=== PATIENT | female | born 1970 | race Caucasian/White ===

== ENCOUNTER → 2017-03-30 | Day surgery (SDC) | payer OTHER ==
[~2017-03-30] VITALS: Ht 165.1 cm; Wt 86.2 kg
[~2017-03-30] MED LIST: DOXY-278 PO; GLYCOPYRROLATE INJ 0.2 MG/ML 2 ML VIAL As Ordered ONE; HYDROmorphone HCL 1 MG/ML SYRINGE (J1170) IV PRN; KETOROLAC 30 MG/ML VIAL (J1885) IV PRN; LIDOCAINE 1% MDV 20ML VIAL SQ ONE; LIDOCAINE 2% INJ 100 MG/5 ML SDV (FOR ANES.) As Ordered ONE; LIDOCAINE W/EPINEPHRINE 1% 20ML VIAL As Ordered ONE; LR 1,000 ML IV ONE; LR 1,000 ML IV SCH; MEPERIDINE INJ 25 MG/ML VIAL (J2175) IV PRN; METHYLENE BLUE 0.5% (5MG/ML) 10 ML AMP (PROVAYBLUE)(Q9968 PER 1MG) As Ordered ONE; METOCLOPRAMIDE INJ 10MG/2ML VIAL (J2765) As Ordered ONE; MIDAZOLAM INJ 2 MG/2 ML VIAL (J2250) As Ordered ONE; NEOSTIGMINE 1MG/ML 5 ML SYRINGE (J2710) As Ordered ONE; ONDANSETRON 4MG/2ML VIAL (J2405) As Ordered ONE; ONDANSETRON 4MG/2ML VIAL (J2405) IV PRN; OXYMETAZOLINE NASAL SPRAY (AFRIN) As Ordered ONE; PERCOCET 5MG/325MG TAB PO PRN; PERCOCET PO; PROPOFOL 200 MG/20 ML VIAL As Ordered ONE; ROCURONIUM BROMIDE 50 MG/5 ML VIAL As Ordered ONE; dexameTHASONE 4 MG/ML 1ML VIAL (J1100) As Ordered ONE; fentaNYL 100 MCG/2 ML INJECTION (J3010) IV PRN; fentaNYL 250 MCG/5 ML INJECTION (J3010) As Ordered ONE
[2017-03-30 13:55] VITALS: BP 152/86
--- NOTE | 2017-04-01 09:44 | RO ---
DATE OF PROCEDURE: 03/30/2017 PREPROCEDURE DIAGNOSES: Deviated septum, chronic rhinitis. POSTPROCEDURE DIAGNOSES: Deviated septum, chronic rhinitis. PROCEDURE: Septoplasty, partial reduction inferior turbinates. SURGEON: Dr. Santosh Oakes [employer] O[employer]: ANESTHESIA: General endotracheal. INDICATIONS: This is a 47-year-old with a long history of nasal obstruction, worse on the right side. DESCRIPTION OF PROCEDURE: Satisfactory general endotracheal anesthesia administered. Pharyngeal pack was placed. The nose was prepared for surgery by placing cotton-soaked pledgets with Afrin solution to nasal cavity bilaterally. 1% Xylocaine with 1:100,000 epinephrine was used to inject into the nasal septum and inferior turbinates. 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 This approach was taken to avoid loss of the normal dorsal and caudal struts. The septum was then mobilized so its edge could be visualized and then an envelope was created on the left side of the septum by elevating mucoperichondrium off the caudal septum. An envelope was then created on the right side of the septum with the caudal strut and dorsal strut well visualized at this point. First a central segment of cartilaginous septum was resected, care taken to preserve at least a 1 cm dorsal and caudal strut throughout the dissection. A strip of cartilage was then taken from the floor and it was mobilized in the caudal cartilate. Mucoperiosteum was then elevated off the maxillary crest. Spur was deflected strongly into the left side. This was then taken down with a chisel. There was also a vomer spur was deflected into the left side, which was freed. The mucoperiosteum was then taken down with scissors above and chiseled below. With the bony spurs resected, the cartilaginous septum was easy to mobilize and set back into the midline. Double action rongeur was used to take down some overhang of the perpendicular plate, which completed the resection of the septum. The incision was then closed using an interrupted #4-0 chromic suture. Then, a #4-0 plain suture was placed in a [id number] fashion through the two leaves of mucoperichondrium to appose them. Next, the inferior turbinates were medially infractured. A #15 blade was used to make an incision on the anterior tip of the inferior turbinate. With a Mcdonald elevator, a mucoperiosteal tunnel was created on the medial side of the turbinate. Then, the microdebrider with a 2.9 mm blade was inserted into the tunnel, and the underlying turbinate bone was weakened and partially resected using the microdebrider. Then, the turbinate was laterally outfractured. The posteroinferior tip of the turbinate was then cauterized with suction cautery. Finally, Garzon splints were placed into the nose and sewn to the columella with a #2-0 Prolene suture in a way to support the caudal septum and affix it to the columella. The pharyngeal pack, which had been placed at the beginning of the procedure was removed, the throat was suctioned. The patient was then awakened, extubated, and sent to recovery in satisfactory condition. She will be discharged home on Percocet for pain and doxycycline 100 mg twice a day. She will be seen back in the office in 1 week.
== END | disposition home or self-care (01) ==
LOC: M SDC 09:16
PROVIDERS: ATTEND Specialist
DX: J34.2 Deviated nasal septum (principal); J31.0 Chronic rhinitis

== ENCOUNTER → 2019-04-14 | Outpatient (REF) | payer OTHER ==
[~2019-04-14] MED LIST changes: -DOXY-278 PO; +DOXY-350 PO; -GLYCOPYRROLATE INJ 0.2 MG/ML 2 ML VIAL As Ordered ONE; -HYDROmorphone HCL 1 MG/ML SYRINGE (J1170) IV PRN; -KETOROLAC 30 MG/ML VIAL (J1885) IV PRN; -LIDOCAINE 1% MDV 20ML VIAL SQ ONE; -LIDOCAINE 2% INJ 100 MG/5 ML SDV (FOR ANES.) As Ordered ONE; -LIDOCAINE W/EPINEPHRINE 1% 20ML VIAL As Ordered ONE; -LR 1,000 ML IV ONE; -LR 1,000 ML IV SCH; -MEPERIDINE INJ 25 MG/ML VIAL (J2175) IV PRN; -METHYLENE BLUE 0.5% (5MG/ML) 10 ML AMP (PROVAYBLUE)(Q9968 PER 1MG) As Ordered ONE; -METOCLOPRAMIDE INJ 10MG/2ML VIAL (J2765) As Ordered ONE; -MIDAZOLAM INJ 2 MG/2 ML VIAL (J2250) As Ordered ONE; -NEOSTIGMINE 1MG/ML 5 ML SYRINGE (J2710) As Ordered ONE; -ONDANSETRON 4MG/2ML VIAL (J2405) As Ordered ONE; -ONDANSETRON 4MG/2ML VIAL (J2405) IV PRN; -OXYMETAZOLINE NASAL SPRAY (AFRIN) As Ordered ONE; -PERCOCET 5MG/325MG TAB PO PRN; -PROPOFOL 200 MG/20 ML VIAL As Ordered ONE; -ROCURONIUM BROMIDE 50 MG/5 ML VIAL As Ordered ONE; -dexameTHASONE 4 MG/ML 1ML VIAL (J1100) As Ordered ONE; -fentaNYL 100 MCG/2 ML INJECTION (J3010) IV PRN; -fentaNYL 250 MCG/5 ML INJECTION (J3010) As Ordered ONE
== END ==
LOC: M LAB LCGH 11:27
PROVIDERS: ATTEND Obstetrics & Gynecology
DX: N92.6 Irregular menstruation, unspecified (principal); N85.00 Endometrial hyperplasia, unspecified